=== PATIENT | female | born 1970 | race African-American/Black ===

== ENCOUNTER 2019-10-03 11:22 | Emergency (ER) | payer BC ==
[2019-10-03] MEDS ORDERED: NORMAL SALINE 1000 ML 1,000 ML IV ONE ×2 (11:54→13:29)
--- NOTE | 2019-10-03 11:57 | ER Document Report ---
ED Medical Screen (RME) - General Chief Complaint: Passed Out Prior to Arrival Stated Complaint: POSSIBLE SYNCOPE Time Seen by Provider: 10/03/19 11:46 Notes: Patient is a 49-year-old female who presents emergency department today for the chief complaint of syncope. 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 Patient states she felt like she was going to throw up and per the she lightly fell to the ground onto her right side. He states that it was a very slow and controlled fall and that she did not hit her head. Patient denies loss of consciousness as she states she does remember the events. Patient reports that over the past few days she has not felt quite right and has had a headache. Patient states she has been taking aspirin for her headache. Patient states at the moment she does feel a little bit sluggish. Patient reports she did not drink anything today or have anything for breakfast. TRAVEL OUTSIDE OF THE [place] IN LAST 30 DAYS: No - Related Data Allergies/Adverse Reactions: No Known Allergies Allergy (Verified 10/03/19 11:43) Past Medical History - Social History Chew tobacco use (# tins/day): No Frequency of alcohol use: None Drug Abuse: None Physical Exam - Vital signs Vitals: Temp Pulse Resp BP Pulse Ox 98.2 F 118 H 18 165/79 H 99 10/03/19 11:26 10/03/19 11:26 10/03/19 11:26 10/03/19 11:26 10/03/19 11:26 - Cardiovascular Rhythm: Tachycardia Course - Re-evaluation Re-evalutation: 10/03/19 11:56 Patient was noted to be tachycardic in triage. Patient states she does have a history of a rapid heart rate when she did go to the emergency department 6 years ago. Patient denies chest pain. Patient reports at times she does feel like her heartbeat is beating fast. I have greeted and performed a rapid initial assessment of this patient. A comprehensive ED assessment and evaluation of the patient, analysis of test results and completion of the medical decision making process will be conducted by additional ED providers. - Vital Signs Vital signs: Temp Pulse Resp BP Pulse Ox 98.2 F 118 H 18 165/79 H 99 10/03/19 11:26 10/03/19 11:26 10/03/19 11:26 10/03/19 11:26 10/03/19 11:26
[2019-10-03 13:03] LABS: ABSOLUTE LYMPHOCYTES (AUTO) 1.1 10^3/uL (0.5-4.7); ABSOLUTE MONOCYTES (AUTO) 0.7 10^3/uL (0.1-1.4); ABSOLUTE NEUT (AUTO) 8.6 10^3/uL (1.7-8.2); BASOPHILS % (AUTO) 0.2 % (0-2); EOSINOPHILS % (AUTO) 0.1 % (0-6); LYMPHOCYTES % (AUTO) 10.5 % (13-45); MEAN CORPUSCULAR HEMOGLOBIN 27.8 pg (27.0-33.4); MEAN CORPUSCULAR HGB CONC 33.3 g/dL (32.0-36.0); MEAN CORPUSCULAR VOLUME 83 fl (80-97); MONOCYTES % (AUTO) 6.5 % (3-13); PLATELET COUNT 414 10^3/uL (150-450); RED BLOOD COUNT 5.04 10^6/uL (3.72-5.28); RED CELL DISTRIBUTION WIDTH 14.4 % (11.5-14.0); SEGMENTED NEUTROPHILS % (AUTO) 82.7 % (42-78); TOTAL CELLS COUNTED % (AUTO) 100 %; WHITE BLOOD COUNT 10.4 10^3/uL (4.0-10.5)
[2019-10-03 13:25] LABS: ALBUMIN 4.7 g/dL (3.5-5.0); ALKALINE PHOSPHATASE 116 U/L (38-126); ANION GAP 15 (5-19); ASPARTATE AMINO TRANSFERASE 24 U/L (14-36); BILIRUBIN,DIRECT 0.1 mg/dL (0.0-0.4); BILIRUBIN,TOTAL 0.5 mg/dL (0.2-1.3); BLOOD UREA NITROGEN 11 mg/dL (7-20); CALCIUM 10.2 mg/dL (8.4-10.2); CARBON DIOXIDE 23 mmol/L (22-30); CHLORIDE 103 mmol/L (98-107); GLUCOSE 87 mg/dL (75-110); TOTAL PROTEIN 8.5 g/dL (6.3-8.2)
--- NOTE | 2019-10-03 13:25 | RADIOLOGY REPORT (SQ) ---
EXAM DESCRIPTION: CHEST 2 VIEWS COMPLETED DATE/TIME: 10/03/2019 1:15 pm REASON FOR STUDY: syncope COMPARISON: None. EXAM PARAMETERS: NUMBER OF VIEWS: two views TECHNIQUE: Digital Frontal and Lateral radiographic views of the chest acquired. RADIATION DOSE: NA LIMITATIONS: none FINDINGS: LUNGS AND PLEURA: No consolidation, pneumothorax or pleural effusion. MEDIASTINUM AND HILAR STRUCTURES: No masses or contour abnormalities. HEART AND VASCULAR STRUCTURES: Heart normal size. No evidence for failure. BONES: No acute findings. HARDWARE: None in the chest. IMPRESSION: No acute radiographic finding in the chest. TECHNICAL DOCUMENTATION: JOB ID: [id number] [employer]- All Rights Reserved Reading location - IP/workstation name: [email or web address]
--- NOTE | 2019-10-03 13:35 | ER Document Report ---
ED General - General Chief Complaint: Passed Out Prior to Arrival Stated Complaint: POSSIBLE SYNCOPE Time Seen by Provider: 10/03/19 11:46 Primary Care Provider: HERMINIA KNOTT PA-C [Primary Care Provider] - Follow up as needed TRAVEL OUTSIDE OF THE [place] IN LAST 30 DAYS: No - HPI Notes: Patient is a 49-year-old female no significant past medical history aside from tubal ligation who presents complaining of near syncopal episode while at [employer] this morning. Patient states that she was on stage getting reducing when she started feeling lightheaded and dizzy. Patient states that she sat down and did not have loss of consciousness associated. Patient states that she did not eat much this morning. She otherwise has been feeling well. No recent illness. Denies drug allergies. Pt is denying any PHAM. Denies any prolonged immobilization, distance travel, recent surgery/trauma, personal cancer history, hormone use, smoking, or previous DVT/PE. Denies any headache, fever, head injury, neck pain, changes in vision/speech/mentation/hearing, URI, sore throat, chest pain, palpitations, syncope, cough, shortness of breath, wheeze, dyspnea, abdominal pain, nausea/vomiting/diarrhea, urinary retention, dysuria, hematuria, loss of control of bowel or bladder, numbness/tingling, saddle anesthesia, muscle paralysis/weakness, or rash. - Related Data Allergies/Adverse Reactions: No Known Allergies Allergy (Verified 10/03/19 11:43) Past Medical History - Social History Smoking Status: Never Smoker Chew tobacco use (# tins/day): No Frequency of alcohol use: None Drug Abuse: None Family History: Reviewed & Not Pertinent Patient has suicidal ideation: No Patient has homicidal ideation: No Review of Systems - Review of Systems -: Yes All other systems reviewed and negative Physical Exam - Vital signs Vitals: Temp Pulse Resp BP Pulse Ox 98.2 F 118 H 18 165/79 H 99 10/03/19 11:26 10/03/19 11:26 10/03/19 11:26 10/03/19 11:26 10/03/19 11:26 - Notes Notes: PHYSICAL EXAMINATION: GENERAL: Well-appearing, well-nourished and in no acute distress. A&Ox4. Answers questions appropriately. HEAD: Atraumatic, normocephalic. Non-tender. EYES: Pupils equal round and reactive to light, extraocular movements intact, sclera anicteric, conjunctiva are normal. No nystagmus. ENT: Nares patent and without discharge. oropharynx clear without exudates. No tonsilar hypertrophy or erythema. Moist mucous membranes. NECK: Normal range of motion, supple without lymphadenopathy. No rigidity/meningismus. No midline tenderness. LUNGS: Breath sounds clear to auscultation bilaterally and equal. No wheezes rales or rhonchi. HEART: Regular rate and rhythm without murmurs, rubs, gallops. ABDOMEN: Soft, nontender, nondistended abdomen. No guarding, no rebound. Normal bowel sounds present. No CVA tenderness bilaterally. Musculoskeletal: Ext b/l: FROM to passive/active. Strength 5+/5. No deficits noted. No bony tenderness of extremities. Extremities: No cyanosis, clubbing, or edema b/l. Peripheral pulses 2+. Capillary refill less than 2 seconds. No lower extremity asymmetry. Alfredo n egative bilaterally. NEUROLOGICAL: NIH 0. GCS 15. Cranial nerves grossly intact. Normal speech, normal gait. Normal sensory, motor exams. Reflexes 2+ b/l. ANA's negative. Pronator drift negative. Heel/brown, finger/nose wnl. PSYCH: Normal mood, normal affect. SKIN: Warm, Dry, normal turgor, no rashes or lesions noted. Course - Re-evaluation Re-evalutation: 10/03/19 14:44 Patient is an afebrile, well-hydrated, 49-year-old female who presents with near syncopal episode, possible mild dehydration. Vitals are acceptable without significant tachycardia, tachypnea, hypoxia. Heart rate at this time on monitor is staying in the low to mid 90's. PE is otherwise unremarkable for any focal neurological deficits. Patient is nontoxic-appearing and is tolerating p.o. without difficulty. Labs, EKG, and imaging acceptable. Orthostatics negative. Patient was given 2 L of fluid which significantly improved her mild tachycardia to a current heart rate of 94. She has not had any chest pain, dyspnea on exertion, headache, or shortness of breath. She has low DVT/PE risk factors otherwise. Low suspicion for any acute intracranial pathology, ACS, PE, pneumothorax, pericarditis, dissection, respiratory compromise, severe dehydration, sepsis, meningitis, or other systemic emergent condition at this time. Patient is aware that her condition can change from initial presentation and she needs to monitor symptoms closely and seek medical attention for any acute changes. Patient is feeling well and is ready to go home. Recommend conservative measures for symptoms. Recheck with your PCM in 2-3 days. Return to the ED with any worsening/concerning symptoms otherwise as reviewed in discharge. Patient is in agreement. - Vital Signs Vital signs: Temp Pulse Resp BP Pulse Ox 98.2 F 106 H 18 135/89 H 99 10/03/19 11:26 10/03/19 14:01 10/03/19 11:26 10/03/19 14:01 10/03/19 11:26 - Laboratory Result Diagrams: 10/03/19 12:45 10/03/19 12:45 Laboratory results interpreted by me: 10/03/19 10/03/19 10/03/19 12:45 12:45 12:50 RDW 14.4 H Lymph % (Auto) 10.5 L Absolute Neuts (auto) 8.6 H Seg Neutrophils % 82.7 H Total Protein 8.5 H Urine Blood MODERATE H Discharge - Discharge Clinical Impression: Near syncope Condition: Stable Disposition: HOME, SELF-CARE Instructions: Near Syncopal Episode ([facility]) Additional Instructions: Rest, Ice/cool compress Tylenol/ibuprofen as needed Healthy diet Push fluids F/u with your PCP in 2-3 days for a recheck Consider consult(s) with Neurology/cardiology for ongoing/worsening symptoms Return to the ED with any worsening symptoms and/or development of fever, headache, changes in behavior/mentation/vision/speech, chest pain, palpitations, syncope, shortness of breath, trouble breathing, abdominal pain, n/v/d, blood in stool/urine, loss of control of bowel/bladder, urinary retention, muscle weakness/paralysis, saddle anesthesia, numbness/tingling, or other worsening symptoms that are concerning to you. Forms: Elevated Blood Pressure Referrals: HERMINIA KNOTT PA-C [Primary Care Provider] - Follow up as needed KASI LEHMAN MD [ACTIVE STAFF] - Follow up as needed
[2019-10-03 14:05] LABS: APPEARANCE,URINE SLIGHTLY-CLOUDY; BILIRUBIN,URINE NEGATIVE (NEGATIVE); COLOR,URINE STRAW; GLUCOSE, URINE NEGATIVE (NEGATIVE); KETONES,URINE NEGATIVE (NEGATIVE); PROTEIN,URINE NEGATIVE (NEGATIVE); URINE SPECIFIC GRAVITY 1.003; UROBILINOGEN,URINE NEGATIVE mg/dL (<2.0)
[2019-10-03 15:13] VITALS: BP 145/67
--- NOTE | 2019-10-03 23:41 | EKG REPORT ---
SEVERITY:- BORDERLINE ECG - SINUS TACHYCARDIA PROBABLE LEFT ATRIAL ABNORMALITY : Confirmed by: Margaux Suarez MD 03-Oct-2019 23:40:45
== END 2019-10-03 15:11 | disposition home or self-care (01) ==
LOC: ER 11:22
DX: R55 Syncope and collapse (principal); Z98.51 Tubal ligation status
CPT/HCPCS: 99284; 96360; 96361; 36415; 83735; 84443; 85025; 81025; 80053; 81001; 84484; 71046; 93005; 93010; J7030